=== PATIENT | male | born 1995 | race Two or more races ===

== ENCOUNTER 2024-05-19 16:50 | Inpatient (IN) | payer OTHER ==
[~2024-05-19] VITALS: Ht 167.6 cm; Wt 80.0 kg
[2024-05-19 18:33] LABS: BASOPHILS % (AUTO) 0.5 % (0.0-2.0); EOSINOPHILS % (AUTO) 2.7 % (1.0-6.0); HEMATOCRIT 42.2 % (41-53); HEMOGLOBIN 14.4 g/dL (13.5-17.5); LYMPHOCYTES % (AUTO) 22.6 % (22.0-44.0); MEAN CORPUSCULAR HEMOGLOBIN 30.9 pg (26.0-34.0); MEAN CORPUSCULAR HGB CONC 34.2 G/dL (31.0-37.0); MEAN CORPUSCULAR VOLUME 91 fL (80-100); MONOCYTES # (AUTO) 0.7 K/uL (0.1-1.0); MONOCYTES % (AUTO) 8.6 % (2.0-9.0); NEUTROPHILS # (AUTO) 5.7 K/uL (1.8-7.7); NEUTROPHILS % (AUTO) 65.6 % (40.0-70.0); PLATELET COUNT (AUTO) 175 K/uL (150-450); RED BLOOD CELL COUNT(AUTO) 4.66 MIL/uL (4.50-5.90); RED CELL DISTRIBUTION WIDTH 13.8 % (11.5-14.5); WHITE BLOOD COUNT (AUTO) 8.7 K/uL (4.5-11.0)
[2024-05-19 18:46] LABS: ANION GAP 8 mmol/L (8-16); CALCIUM, TOTAL 8.9 mg/dL (8.8-10.5); CARBON DIOXIDE 27 mmol/L (22-29); CHLORIDE 103 mmol/L (98-107); CREATININE 0.87 mg/dL (0.60-1.30); GLOMERULAR FILTR. RATE CALC > 60 mL/min (>60); GLUCOSE,RANDOM 90 mg/dL (70-110); POTASSIUM 3.3 mmol/L (3.5-5.1); SODIUM SERUM 138 mmol/L (136-145); UREA NITROGEN, BLOOD 11 mg/dL (7-18)
[2024-05-19 18:48] LABS: ALANINE AMINOTRANSFERASE 55 U/L (12-78); ALBUMIN 3.9 g/dL (3.4-5.0); ALCOHOL, BLOOD (SERUM) < 3 mg/dL (0-10); ALKALINE PHOSPHATASE 66 U/L (46-116); ASPARTATE AMINOTRANSFERASE 59 U/L (15-37); BILIRUBIN,TOTAL 0.8 mg/dL (0.1-1.0); TOTAL PROTEIN, SERUM 7.5 g/dL (6.4-8.2)
[2024-05-19] MEDS ORDERED: OLAN5TAB52 PO (18:48)
[2024-05-19] MEDS ORDERED: ZOLPIDEM TARTRATE 5 MG TABLET PO PRN (19:30)
[2024-05-19] MEDS ORDERED: MAGNESIUM HYDROXIDE SUSPENSION 30 ML UDCUP PO PRN (19:30)
[2024-05-19] MEDS ORDERED: ACETAMINOPHEN 325 MG TABLET PO PRN (19:30)
[2024-05-19 19:31] LABS: COVID AG,FIA SOURCE NASAL SWAB
[2024-05-19 19:48] LABS: SARS-COV2 (COVID) ANTIGEN,FIA Negative (Negative)
[2024-05-19] MEDS: POTASSIUM CHLORIDE 20 MEQ ER TABLET PO ONE (22:39)
[2024-05-19 23:14] VITALS: BP 107/73; PULSE 71; RESP 18; TEMP 98.4; O2SAT 97
[2024-05-20] MEDS ORDERED: POTASSIUM CHL 10 MEQ/WATER 50 ML IV PRN (12:00)
[2024-05-20] MEDS: POTASSIUM CHLORIDE 20 MEQ ER TABLET PO PRN (13:09)
[2024-05-20] MEDS ORDERED: HALOPERIDOL LACTATE 5 MG/ML VIAL IM PRN (16:30)
[2024-05-20 20:13] VITALS: BP 136/85; PULSE 66; RESP 18; TEMP 97.5; O2SAT 97
[2024-05-20] MEDS: OLANZapine 5 MG RAPDIS TABLET PO SCH (20:50)
[2024-05-21 04:29] VITALS: BP 122/72; PULSE 74; RESP 18; TEMP 98; O2SAT 97
[2024-05-21 08:36] VITALS: BP 116/63; PULSE 76; RESP 19; TEMP 98.1; O2SAT 100
[2024-05-21 20:32] VITALS: BP 111/63; PULSE 70; RESP 18; TEMP 98; O2SAT 96
[2024-05-22 07:56] VITALS: BP 108/68; PULSE 66; RESP 19; TEMP 98.2; O2SAT 97
== END 2024-05-22 16:40 | DRG 885 ==
LOC: EMS 16:50 → EDH 20:26 → 6S 23:09
PROVIDERS: ADMIT Internal Medicine; ATTEND Internal Medicine
PROC: GZ56ZZZ Individual Psychotherapy, Supportive (ICD-10-PCS; principal; 2024-05-20)
PROC: GZ52ZZZ Individual Psychotherapy, Cognitive (ICD-10-PCS; 2024-05-20)
DX: F31.2 Bipolar disorder, current episode manic severe with psychotic features (principal); F23 Brief psychotic disorder; E87.6 Hypokalemia; Z20.822 Contact with and (suspected) exposure to COVID-19; Z79.899 Other long term (current) drug therapy
CPT/HCPCS: 80048; 80076; 84132; 85025; 99285; G0480